=== PATIENT | male | born 1985 | race African-American/Black ===

== ENCOUNTER 2022-10-24 12:31 | Emergency (ER) | payer MEDICAID ==
[~2022-10-24] VITALS: Ht 170.2 cm; Wt 64.0 kg
[2022-10-24] MEDS ORDERED: IBUPROFEN 600MG TABLET PO ONE (14:15)
[2022-10-24 14:24] VITALS: BP 126/73
== END 2022-10-24 15:54 | disposition home or self-care (01) ==
LOC: ER 12:31
DX: S62.611A Displaced fracture of proximal phalanx of left index finger, initial encounter for closed fracture (principal); Z88.2 Allergy status to sulfonamides; X58.XXXA Exposure to other specified factors, initial encounter; Y93.89 Activity, other specified; Y92.89 Other specified places as the place of occurrence of the external cause; Y99.8 Other external cause status
CPT/HCPCS: 29130; 73130; 99283

== ENCOUNTER 2025-05-27 23:30 | Emergency (ER) | payer SELFPAY ==
[~2025-05-27] VITALS: Ht 170.2 cm; Wt 73.0 kg
[2025-05-27 23:35] VITALS: BP 73/30; PULSE 128; RESP 20; O2SAT 87
[2025-05-27] MEDS ORDERED: NOREPINEPHRINE 8MG/250ML PMX 250 ML IV ONE (23:41)
[2025-05-27] MEDS ORDERED: OCTREOTIDE 1,000 MCG in SODIUM CHLORIDE 0.9% 100 ML IV STA (23:56)
[2025-05-27] MEDS ORDERED: PANTOPRAZOLE SODIUM 40 MG/VIAL IV STA (23:56)
[2025-05-27] MEDS ORDERED: ONDANSETRON HCL 4MG/2ML INJ IV STA (23:56)
[2025-05-27] MEDS ORDERED: OCTREOTIDE ACETATE 50 MCG/ML 1ML IV STA (23:56)
[2025-05-28] MEDS ORDERED: PROPOFOL 10MG/ML 100ML 100 ML IV ONE
[2025-05-28 00:11] LABS: BASOPHILS % 0.3 % (0.0-2.0); EOSINOPHILS % 0.6 % (0.0-5.0); HEMATOCRIT. 37.0 % (42.0-52.0); HEMOGLOBIN. 11.2 g/dL (14.0-18.0); LYMPHOCYTES % 17.3 % (20.0-50.0); MEAN PLATELET VOLUME 8.0 fl (7.4-10.4); MONOCYTES % 4.6 % (2.0-8.0); NEUTROPHILS % 77.2 % (40.0-76.0); PLATELET 227 x1000/uL (130-400); RED BLOOD CELL COUNT 3.28 mill/uL (4.7-6.1); RED CELL DISTRIBUTION WIDTH 13.7 % (11.6-14.6)
[2025-05-28 00:13] LABS: ADD RBC MORPHOLOGY YES
[2025-05-28 00:28] LABS: INR 1.0
[2025-05-28 00:37] LABS: CREATININE 1.5 mg/dL (0.6-1.3); TROPONIN I HIGH SENSITIVITY 21 ng/L (3.0-53); UREA NITROGEN BLOOD 12 mg/dL (9-23)
[2025-05-28 00:38] LABS: ETHANOL BLOOD 106 mg/dL (<10)
[2025-05-28 00:55] LABS: BG BASE EXCESS -4.8 mmol/L (-2.0-3.0); BG CARBOXYHEMOGLOBIN 0.0 % (0.5-1.5); BG DEOXYHEMOGLOBIN 0.0 % (0.0-5.0); BG FLOW(L/min) 15.00 L/min; BG FRACTION INSPIRED OXYGEN 100; BG HCO3 ACT 22.0 mmol/L (21.0-28.0); BG METHEMOGLOBIN 0.0 % (0.5-1.5); BG OXYHEMOGLOBIN 0.0 % (94.0-98.0); BG PCO2 46.7 mmHg (35.0-48.0); BG PH 7.290 (7.350-7.450); BG PO2 16.7 mmHg (83.0-108.0); BG SAMPLE SITE VBG - N/A; BG TOTAL HEMOGLOBIN 0.0 g/dL (13.5-17.5); BG VENT MODE BAG MV
[2025-05-28 04:23] LABS: PLATELET ESTIMATE NORMAL
== END 2025-05-28 03:00 ==
LOC: ER 23:35
DX: I46.9 Cardiac arrest, cause unspecified (principal); Z88.2 Allergy status to sulfonamides
CPT/HCPCS: 80048; 80320; 83605; 83690; 85025; 85379; 85610; 85730; 86850; 86900; 86901; 86920; 84484; 36415; 92950 ×2; 31500; 93005; 94070 ×2; 99291; 82962; 82805; 36600; J3490; Z7610 ×4; 94002; J2354; J7050; P9016; G0480